=== PATIENT | female | born 1995 | race Caucasian/White ===

== ENCOUNTER 2016-07-17 11:14 | Emergency (ER) | payer OTHER ==
[~2016-07-17] VITALS: Ht 165.1 cm; Wt 61.4 kg
[2016-07-17 14:01] VITALS: BP 101/75
== END 2016-07-17 14:19 | disposition home or self-care (01) ==
LOC: EMS 11:19
DX: L23.9 Allergic contact dermatitis, unspecified cause (principal); J06.9 Acute upper respiratory infection, unspecified; Z20.7 Contact with and (suspected) exposure to pediculosis, acariasis and other infestations
CPT/HCPCS: 99283

== ENCOUNTER 2018-04-29 12:51 | Emergency (ER) | payer MEDICAID ==
[~2018-04-29] VITALS: Ht 165.1 cm; Wt 70.5 kg
[2018-04-29] MEDS: IPRATROPIUM BROMIDE 0.5 MG/2.5 ML NEB SOLUTION NEB ONE (17:45)
[2018-04-29] MEDS: ALBUTEROL SULFATE 2.5 MG/0.5 ML NEB SOLUTION NEB ONE (17:45)
[2018-04-29] MEDS: SULFAMETHOX/TRIMETH DS 800-160 MG/TABLET PO ONE (17:46)
[2018-04-29 18:00] VITALS: BP 111/73
== END 2018-04-29 18:00 | disposition home or self-care (01) ==
LOC: EMS 12:53
DX: N39.0 Urinary tract infection, site not specified (principal); M54.6 Pain in thoracic spine; J45.909 Unspecified asthma, uncomplicated